=== PATIENT | male | born 1960 | race Caucasian/White ===

== ENCOUNTER 2020-06-03 07:15 | Outpatient (REF) | payer BC, SELFPAY ==
[2020-06-03 08:43] LABS: Alanine Aminotransferase 27 U/L (0-40); Albumin Level 4.4 g/dL (3.5-5.0); Alkaline Phosphatase 64 U/L (39-117); Aspartate Amino Transferase 23 U/L (5-37); Bilirubin Direct 0.3 mg/dL (0.0-0.5); Bilirubin Total 0.8 mg/dL (0.0-1.0); Cholesterol 172 mg/dL; HDL Cholesterol 45 mg/dL; LDL Cholesterol Calculated 102 mg/dl; Total Protein 7.1 g/dL (6.5-8.0); Triglycerides 127 mg/dL
[2020-06-03 09:27] LABS: Estimated Average Glucose 137 mg/dL; Hemoglobin A1c % 6.4 %
== END 2020-06-03 07:16 | disposition home or self-care (01) ==
LOC: HO.LAB 07:15
PROVIDERS: PCP Internal Medicine; Visit Provider Internal Medicine
DX: E78.5 Hyperlipidemia, unspecified (principal); E11.9 Type 2 diabetes mellitus without complications
CPT/HCPCS: 80061; 80076; 83036

== ENCOUNTER 2020-08-23 07:53 | Outpatient (REF) | payer BC, SELFPAY | END 2020-08-23 07:54 | disposition home or self-care (01) | LOC: HO.LAB 07:53 | PROVIDERS: Visit Provider Internal Medicine | DX: Z20.828 Contact with and (suspected) exposure to other viral communicable diseases (principal) | CPT/HCPCS: C9803; U0003 ==

== ENCOUNTER 2020-10-01 06:17 | Outpatient (REF) | payer BC, SELFPAY ==
[2020-10-01 07:38] LABS: Cholesterol 169 mg/dL; HDL Cholesterol 46 mg/dL; LDL Cholesterol Calculated 98 mg/dl; Triglycerides 125 mg/dL
[2020-10-01 08:16] LABS: Estimated Average Glucose 151 mg/dL; Hemoglobin A1c % 6.9 %
== END 2020-10-01 06:18 | disposition home or self-care (01) ==
LOC: HO.LAB 06:17
PROVIDERS: Visit Provider Internal Medicine
DX: E11.9 Type 2 diabetes mellitus without complications (principal); E78.5 Hyperlipidemia, unspecified
CPT/HCPCS: 36415; 80061; 83036

== ENCOUNTER → 2020-11-04 09:11 | Outpatient (BNVA) | payer BC, SELFPAY | PROVIDERS: Visit Provider Orthopaedic Surgery | DX: M17.11 Unilateral primary osteoarthritis, right knee (principal) | CPT/HCPCS: 20610; J1100 ==

== ENCOUNTER 2020-12-31 11:42 | Outpatient (REF) | payer BC, SELFPAY ==
[2020-12-31 13:48] LABS: Estimated Average Glucose 140 mg/dL; Hemoglobin A1c % 6.5 %
== END 2020-12-31 11:43 | disposition home or self-care (01) ==
LOC: HO.LAB 11:42
PROVIDERS: PCP Internal Medicine; Visit Provider Internal Medicine
DX: E11.9 Type 2 diabetes mellitus without complications (principal)
CPT/HCPCS: 36415; 83036

== ENCOUNTER 2021-01-26 11:22 | Outpatient (REF) | payer BC, SELFPAY ==
--- NOTE | ~2021-01-26 | US_ITS ---
EXAMINATION: US PELVIS LIMITED (BLADDER) CLINICAL INFORMATION: Incontinence. COMPARISON: None TECHNIQUE: Real-time imaging of the bladder. FINDINGS: BLADDER: Well distended and normal. Bilateral ureteral jets are demonstrated. Prevoid bladder volume is 436 mL. Postvoid bladder volume is elevated at 46.8 mL. Prostate: The prostate is enlarged measuring 45 grams. US/US bladder IMPRESSION: BPH with 45 gram prostate and moderate post void residual of 47 mL.
== END 2021-01-26 11:23 | disposition home or self-care (01) ==
LOC: HO.HMGCX 11:22
PROVIDERS: PCP Internal Medicine; Visit Provider Internal Medicine
DX: R39.15 Urgency of urination (principal); R35.0 Frequency of micturition
CPT/HCPCS: 76857

== ENCOUNTER 2021-02-17 06:34 | Outpatient (REF) | payer BC, SELFPAY ==
[2021-02-17 07:04] LABS: MANUAL DIFF FLAG NO
[2021-02-17 07:11] LABS: Basophils Percent Auto 0.4 % (0-2); Eosinophils Absolute Auto 0.2 X10*3/uL (0.0-0.4); Eosinophils Percent Auto 3.4 % (0-4); Hematocrit 42.3 % (42-52); Hemoglobin 14.7 g/dl (14.0-18.0); Imm Gran Abs Auto 0.01 X10*3/uL (0.00-0.03); Imm Gran Pct Auto 0.2 % (0.0-0.4); Lymphocytes Absolute Auto 1.3 X10*3/uL (1.2-4.9); Lymphocytes Percent Auto 27.8 % (20-40); Mean Corpuscular HGB Conc 34.8 g/dl (31.0-36.0); Mean Corpuscular Hemoglobin 29.3 pg (27.0-33.0); Mean Corpuscular Volume 84.4 fL (80-98); Mean Platelet Volume 10.3 fL (9.4-12.4); Monocytes Absolute Auto 0.4 X10*3/uL (0.1-1.2); Monocytes Percent Auto 8.8 % (2-11); Neutrophils Absolute Auto 2.8 X10*3/uL (2.0-8.3); Neutrophils Percent Auto 59.4 % (45-73); Platelet Count 152 X10*3/uL (160-400); Red Blood Count 5.01 X10*6/uL (4.60-5.80); Red Cell Distribution Width 12.1 % (11.0-16.0); White Blood Count 4.7 X10*3/uL (4.8-10.8)
[2021-02-17 07:40] LABS: Alanine Aminotransferase 35 U/L (0-40); Albumin Level 4.6 g/dL (3.5-5.0); Alkaline Phosphatase 73 U/L (39-117); Anion Gap 11 (12-20); Aspartate Amino Transferase 29 U/L (5-37); Bilirubin Direct 0.3 mg/dL (0.0-0.5); Bilirubin Total 0.7 mg/dL (0.0-1.0); Blood Urea Nitrogen 21 mg/dL (9-16); Carbon Dioxide 30 mmol/L (22-29); Chloride 104 mmol/L (96-108); Cholesterol 167 mg/dL; Estimated Glomerular Filt Rate > 60; Glucose Fasting 142 mg/dL (60-99); HDL Cholesterol 45 mg/dL; LDL Cholesterol Calculated 90 mg/dl; Potassium 3.8 mmol/L (3.3-5.1); Sodium 141 mmol/L (135-145); Total Protein 7.3 g/dL (6.5-8.0); Triglycerides 161 mg/dL
[2021-02-17 08:01] LABS: Prostate Specific Antigen 5.29 ng/mL (<0.05-4.0)
== END 2021-02-17 06:35 | disposition home or self-care (01) ==
LOC: HO.LAB 06:34
PROVIDERS: PCP Internal Medicine; Visit Provider Internal Medicine
DX: Z12.5 Encounter for screening for malignant neoplasm of prostate (principal); R53.83 Other fatigue; E11.9 Type 2 diabetes mellitus without complications; E78.00 Pure hypercholesterolemia, unspecified
CPT/HCPCS: 36415; 80051; 80061; 80076; 82565; 82947; 84153; 84520; 85025

== ENCOUNTER 2021-03-02 11:06 | Outpatient (REF) | payer BC, SELFPAY ==
--- NOTE | ~2021-03-02 | XR_ITS ---
EXAMINATION: XR FOOT, RIGHT CLINICAL INFORMATION: Trauma COMPARISON: None TECHNIQUE: AP, lateral, and oblique views of the right foot. FINDINGS: Bone alignment is normal. No fracture or dislocation is seen. There is question of cyst erosion of the lateral first metatarsal head. Joint spaces are otherwise normal. There are calcaneal spurs are soft tissues are otherwise normal. XR/XR foot RT min 3V IMPRESSION: No fracture or dislocation seen. Calcaneal spurs. Question small cyst or erosion of the lateral first metatarsal head.
== END 2021-03-02 11:07 | disposition home or self-care (01) ==
LOC: HO.HMGCX 11:06
PROVIDERS: PCP Internal Medicine; Visit Provider Nurse Practitioner Family
DX: S99.921A Unspecified injury of right foot, initial encounter (principal)
CPT/HCPCS: 73630

== ENCOUNTER 2021-06-15 06:08 | Outpatient (REF) | payer BC, SELFPAY ==
[2021-06-15 07:53] LABS: Alanine Aminotransferase 29 U/L (0-40); Albumin Level 4.5 g/dL (3.5-5.0); Alkaline Phosphatase 67 U/L (39-117); Aspartate Amino Transferase 24 U/L (5-37); Bilirubin Direct 0.3 mg/dL (0.0-0.5); Cholesterol 171 mg/dL; HDL Cholesterol 44 mg/dL; LDL Cholesterol Calculated 93 mg/dl; Total Protein 7.4 g/dL (6.5-8.0); Triglycerides 172 mg/dL
== END 2021-06-15 06:09 | disposition home or self-care (01) ==
LOC: HO.LAB 06:08
PROVIDERS: PCP Internal Medicine; Visit Provider Internal Medicine
DX: E78.5 Hyperlipidemia, unspecified (principal); E78.00 Pure hypercholesterolemia, unspecified
CPT/HCPCS: 36415; 80061; 80076

== ENCOUNTER 2021-09-16 06:57 | Outpatient (REF) | payer BC, SELFPAY ==
[2021-09-16 08:25] LABS: Alanine Aminotransferase 28 U/L (0-40); Albumin Level 4.4 g/dL (3.5-5.0); Alkaline Phosphatase 67 U/L (39-117); Aspartate Amino Transferase 24 U/L (5-37); Bilirubin Direct 0.3 mg/dL (0.0-0.5); Bilirubin Total 0.7 mg/dL (0.0-1.0); Cholesterol 155 mg/dL; Estimated Average Glucose 154 mg/dL; HDL Cholesterol 48 mg/dL; LDL Cholesterol Calculated 76 mg/dl; Total Protein 7.2 g/dL (6.5-8.0); Triglycerides 155 mg/dL
== END 2021-09-16 06:58 | disposition home or self-care (01) ==
LOC: HO.LAB 06:57
PROVIDERS: PCP Internal Medicine; Visit Provider Internal Medicine
DX: E11.9 Type 2 diabetes mellitus without complications (principal); E78.5 Hyperlipidemia, unspecified
CPT/HCPCS: 36415; 80061; 80076; 83036

== ENCOUNTER 2021-10-24 06:46 | Outpatient (REF) | payer BC, SELFPAY ==
[2021-10-24 08:31] LABS: Prostate Specific Antigen 4.74 ng/mL (<0.05-4.0)
== END 2021-10-24 06:47 | disposition home or self-care (01) ==
LOC: HO.LAB 06:46
PROVIDERS: PCP Internal Medicine; Visit Provider Urology
DX: Z12.5 Encounter for screening for malignant neoplasm of prostate (principal); R97.20 Elevated prostate specific antigen [PSA]
CPT/HCPCS: 36415; 84153

== ENCOUNTER 2021-12-23 07:06 | Outpatient (REF) | payer BC, SELFPAY ==
[2021-12-23 07:45] LABS: Alanine Aminotransferase 36 U/L (0-40); Albumin Level 4.5 g/dL (3.5-5.0); Alkaline Phosphatase 68 U/L (39-117); Aspartate Amino Transferase 31 U/L (5-37); Bilirubin Direct 0.4 mg/dL (0.0-0.5); Cholesterol 157 mg/dL; HDL Cholesterol 42 mg/dL; LDL Cholesterol Calculated 85 mg/dl; Total Protein 7.4 g/dL (6.5-8.0); Triglycerides 152 mg/dL
== END 2021-12-23 07:07 | disposition home or self-care (01) ==
LOC: HO.LAB 07:06
PROVIDERS: PCP Internal Medicine; Visit Provider Internal Medicine
DX: E78.00 Pure hypercholesterolemia, unspecified (principal)
CPT/HCPCS: 36415; 80061; 80076

== ENCOUNTER 2022-02-21 06:49 | Outpatient (REF) | payer BC, SELFPAY ==
[2022-02-21 07:09] LABS: MANUAL DIFF FLAG NO
[2022-02-21 07:46] LABS: Basophils Percent Auto 0.2 % (0-2); Eosinophils Absolute Auto 0.2 X10*3/uL (0.0-0.4); Eosinophils Percent Auto 3.4 % (0-4); Hematocrit 42.2 % (42.0-52.0); Hemoglobin 14.4 g/dl (14.0-18.0); Imm Gran Abs Auto 0.02 X10*3/uL (0.00-0.03); Imm Gran Pct Auto 0.4 % (0.0-0.4); Lymphocytes Absolute Auto 1.7 X10*3/uL (1.2-4.9); Lymphocytes Percent Auto 30.9 % (20-40); Mean Corpuscular HGB Conc 34.1 g/dl (31.0-36.0); Mean Corpuscular Hemoglobin 28.8 pg (27.0-33.0); Mean Corpuscular Volume 84.4 fL (80.0-98.0); Mean Platelet Volume 10.7 fL (9.4-12.4); Monocytes Absolute Auto 0.4 X10*3/uL (0.1-1.2); Neutrophils Absolute Auto 3.2 x10*3/uL (2.0-8.3); Neutrophils Percent Auto 57.1 % (45-73); Platelet Count 157 X10*3/uL (160-400); Red Cell Distribution Width 12.7 % (11.0-16.0); White Blood Count 5.5 X10*3/uL (4.8-10.8)
[2022-02-21 08:30] LABS: Alanine Aminotransferase 23 U/L (0-40); Albumin Level 4.3 g/dL (3.5-5.0); Alkaline Phosphatase 69 U/L (39-117); Anion Gap 15 (12-20); Aspartate Amino Transferase 24 U/L (5-37); Bilirubin Direct 0.4 mg/dL (0.0-0.5); Bilirubin Total 1.2 mg/dL (0.0-1.0); Blood Urea Nitrogen 17 mg/dL (9-16); Carbon Dioxide 26 mmol/L (22-29); Chloride 103 mmol/L (96-108); Cholesterol 162 mg/dL; Estimated Glomerular Filt Rate > 60; Glucose Fasting 154 mg/dL (60-99); HDL Cholesterol 45 mg/dL; LDL Cholesterol Calculated 79 mg/dl; Potassium 3.7 mmol/L (3.3-5.1); Sodium 140 mmol/L (135-145); Total Protein 7.2 g/dL (6.5-8.0); Triglycerides 191 mg/dL
[2022-02-21 08:37] LABS: Estimated Average Glucose 148 mg/dL; Hemoglobin A1c % 6.8 %
== END 2022-02-21 06:50 | disposition home or self-care (01) ==
LOC: HO.LAB 06:49
PROVIDERS: PCP Internal Medicine; Visit Provider Internal Medicine
DX: E78.5 Hyperlipidemia, unspecified (principal); R53.83 Other fatigue; E11.9 Type 2 diabetes mellitus without complications
CPT/HCPCS: 36415; 80051; 80061; 80076; 82565; 82947; 83036; 84520; 85025

== ENCOUNTER 2022-05-08 07:49 | Outpatient (REF) | payer BC, SELFPAY ==
[2022-05-08 09:08] LABS: Prostate Specific Antigen 5.03 ng/mL (<0.05-4.0)
== END 2022-05-08 07:50 | disposition home or self-care (01) ==
LOC: HO.LAB 07:49
PROVIDERS: PCP Internal Medicine; Visit Provider Urology
DX: Z12.5 Encounter for screening for malignant neoplasm of prostate (principal); R97.20 Elevated prostate specific antigen [PSA]
CPT/HCPCS: 36415; 84153

== ENCOUNTER 2022-05-23 06:50 | Outpatient (REF) | payer BC, SELFPAY ==
[2022-05-23 07:21] LABS: Estimated Average Glucose 131 mg/dL; Hemoglobin A1c % 6.2 %
[2022-05-23 07:47] LABS: Alanine Aminotransferase 21 U/L (0-40); Albumin Level 4.5 g/dL (3.5-5.0); Alkaline Phosphatase 66 U/L (39-117); Aspartate Amino Transferase 20 U/L (5-37); Bilirubin Direct 0.4 mg/dL (0.0-0.5); Cholesterol 168 mg/dL; HDL Cholesterol 48 mg/dL; LDL Cholesterol Calculated 98 mg/dl; Total Protein 7.2 g/dL (6.5-8.0); Triglycerides 114 mg/dL
== END 2022-05-23 06:51 | disposition home or self-care (01) ==
LOC: HO.LAB 06:50
PROVIDERS: PCP Internal Medicine; Visit Provider Internal Medicine
DX: E11.9 Type 2 diabetes mellitus without complications (principal); E78.00 Pure hypercholesterolemia, unspecified
CPT/HCPCS: 36415; 80061; 80076; 83036

== ENCOUNTER 2022-09-07 06:30 | Outpatient (REF) | payer BC, SELFPAY ==
[2022-09-07 08:08] LABS: Estimated Average Glucose 148 mg/dL; Hemoglobin A1c % 6.8 %
[2022-09-07 08:20] LABS: Cholesterol 167 mg/dL; HDL Cholesterol 47 mg/dL; LDL Cholesterol Calculated 94 mg/dl; Triglycerides 131 mg/dL
== END 2022-09-07 06:31 | disposition home or self-care (01) ==
LOC: HO.LAB 06:30
PROVIDERS: PCP Internal Medicine; Visit Provider Internal Medicine
DX: E11.9 Type 2 diabetes mellitus without complications (principal); E78.5 Hyperlipidemia, unspecified
CPT/HCPCS: 36415; 80061; 83036

== ENCOUNTER 2022-11-14 16:46 | Outpatient (REF) | payer BC, SELFPAY ==
[2022-11-16 11:54] LABS: Free Prostate Spec Ag 0.8 ng/mL; Percent Free Prostate Spec Ag 11 % (calc) (>25)
== END 2022-11-14 16:47 | disposition home or self-care (01) ==
LOC: HO.LAB 16:46
PROVIDERS: PCP Internal Medicine; Visit Provider Nurse Practitioner Family
DX: R97.20 Elevated prostate specific antigen [PSA] (principal)
CPT/HCPCS: 36415; 84154

== ENCOUNTER 2023-03-20 06:48 | Outpatient (REF) | payer BC, SELFPAY ==
[2023-03-20 06:55] LABS: MANUAL DIFF FLAG NO
[2023-03-20 07:25] LABS: Basophils Percent Auto 0.5 % (0-2); Eosinophils Absolute Auto 0.2 X10*3/uL (0.0-0.4); Hematocrit 43.6 % (42.0-52.0); Imm Gran Abs Auto 0.02 X10*3/uL (0.00-0.03); Imm Gran Pct Auto 0.3 % (0.0-0.4); Lymphocytes Absolute Auto 1.8 X10*3/uL (1.2-4.9); Lymphocytes Percent Auto 30.7 % (20-40); Mean Corpuscular HGB Conc 34.4 g/dl (31.0-36.0); Mean Corpuscular Hemoglobin 28.8 pg (27.0-33.0); Mean Corpuscular Volume 83.8 fL (80.0-98.0); Mean Platelet Volume 10.6 fL (9.4-12.4); Monocytes Absolute Auto 0.4 X10*3/uL (0.1-1.2); Monocytes Percent Auto 7.3 % (2-11); Neutrophils Absolute Auto 3.3 x10*3/uL (2.0-8.3); Neutrophils Percent Auto 58.2 % (45-73); Platelet Count 172 X10*3/uL (160-400); Red Cell Distribution Width 12.4 % (11.0-16.0); White Blood Count 5.7 X10*3/uL (4.8-10.8)
[2023-03-20 07:56] LABS: Alanine Aminotransferase 23 U/L (0-40); Albumin Level 4.4 g/dL (3.5-5.0); Alkaline Phosphatase 64 U/L (39-117); Anion Gap 12 (12-20); Aspartate Amino Transferase 24 U/L (5-37); Bilirubin Total 0.9 mg/dL (0.0-1.0); Blood Urea Nitrogen 15 mg/dL (9-16); Calcium 9.4 mg/dL (8.4-10.2); Carbon Dioxide 29 mmol/L (22-29); Chloride 102 mmol/L (96-108); Cholesterol 162 mg/dL; Estimated Glomerular Filt Rate > 60; Glucose Fasting 171 mg/dL (60-99); HDL Cholesterol 48 mg/dL; LDL Cholesterol Calculated 86 mg/dl; Potassium 3.6 mmol/L (3.3-5.1); Sodium 139 mmol/L (135-145); Total Protein 7.6 g/dL (6.5-8.0); Triglycerides 144 mg/dL
[2023-03-20 07:57] LABS: Estimated Average Glucose 143 mg/dL; Hemoglobin A1c % 6.6 %
== END 2023-03-20 06:49 | disposition home or self-care (01) ==
LOC: HO.LAB 06:48
PROVIDERS: PCP Internal Medicine; Visit Provider Internal Medicine
DX: Z00.00 Encounter for general adult medical examination without abnormal findings (principal); E78.5 Hyperlipidemia, unspecified; E11.9 Type 2 diabetes mellitus without complications
CPT/HCPCS: 36415; 80053; 80061; 83036; 85025

== ENCOUNTER 2023-07-23 17:06 | Outpatient (REF) | payer BC, SELFPAY ==
[2023-07-23 18:35] LABS: Prostate Specific Antigen 7.89 ng/mL (<0.05-4.0)
== END 2023-07-23 17:07 | disposition home or self-care (01) ==
LOC: HO.LAB 17:06
PROVIDERS: PCP Internal Medicine; Visit Provider Urology
DX: Z12.5 Encounter for screening for malignant neoplasm of prostate (principal); C61 Malignant neoplasm of prostate
CPT/HCPCS: 36415; 84153

== ENCOUNTER 2023-09-21 08:03 | Outpatient (REF) | payer BC, SELFPAY ==
--- NOTE | ~2023-09-21 | XR_ITS ---
EXAMINATION: XR STANDING BILATERAL KNEES XR LATERAL AND SUNRISE VIEWS RIGHT KNEE CLINICAL INFORMATION: Pain in nonspecified knee. COMPARISON: Right knee radiographs 09/04/2019, 07/10/2019, 10/05/2016. TECHNIQUE: An AP standing view both knees was obtained. Lateral and sunrise views of the right knee. FINDINGS: Single AP view of the left knee demonstrates progression of zhiobzzc-cy-kfywnf medial joint space narrowing with medial and lateral marginal osteophytes. Right Knee: Progression of moderate to marked medial joint space narrowing with small medial marginal osteophytes. Moderate joint effusion. Advanced degenerative changes in the patellofemoral joint with large posterior patellar osteophytes and joint space narrowing. Anterior superior patellar spurring with soft tissue calcifications. XR/XR knee standing BI IMPRESSION: 1. Progression of zdclqkzl-lg-hkeiep degenerative changes in the left knee. 2. Progression of moderate to marked degenerative changes in the right knee.
--- NOTE | ~2023-09-21 | XR_ITS ---
EXAMINATION: XR STANDING BILATERAL KNEES XR LATERAL AND SUNRISE VIEWS RIGHT KNEE CLINICAL INFORMATION: Pain in nonspecified knee. COMPARISON: Right knee radiographs 09/04/2019, 07/10/2019, 10/05/2016. TECHNIQUE: An AP standing view both knees was obtained. Lateral and sunrise views of the right knee. FINDINGS: Single AP view of the left knee demonstrates progression of fltiahff-gc-omtucx medial joint space narrowing with medial and lateral marginal osteophytes. Right Knee: Progression of moderate to marked medial joint space narrowing with small medial marginal osteophytes. Moderate joint effusion. Advanced degenerative changes in the patellofemoral joint with large posterior patellar osteophytes and joint space narrowing. Anterior superior patellar spurring with soft tissue calcifications. XR/XR knee RT 2V IMPRESSION: 1. Progression of mqpvsiwp-va-fuuvjz degenerative changes in the left knee. 2. Progression of moderate to marked degenerative changes in the right knee.
== END 2023-09-21 08:04 | disposition home or self-care (01) ==
LOC: HO.HOSX 08:03
PROVIDERS: Visit Provider Orthopaedic Surgery
DX: M25.561 Pain in right knee (principal)
CPT/HCPCS: 20610; 73560; 73565; J0665; J1100

== ENCOUNTER 2023-09-21 09:35 | Outpatient (AMB) | payer BC, SELFPAY ==
--- NOTE | 2023-09-21 09:46 | MHC.OFFVIS ---
Intake Vital Signs 09/21/23 09:49 Height 6 ft Weight 225 lb BMI 30.5 Intake Visit Reasons: OV-Right knee pain DOS in 2017 Intake Note: Ryan is a 63 year old male who presents today for a follow up of his right knee. Hx of right knee 10/15/2016. Last Injected 11/04/2020. Patient reports that around eryn time he has some increased aching, he played golf and pushed it. He does not recall and direct injury, but he was in significant pain after playing golf . He feels pain throughout the knee but most intense pain is felt on the lateral aspect of the knee . He is taking ibuprofen/Tylenol for his pain which only provides mild. He is wearing a knee brace, finds this helpful while on uneven ground. Allergies No Known Allergies [No Known Allergies*] Allergy (Unverified 05/13/20 17:05) HPI OV-Right knee pain DOS in 2017 HPI Details Ryan is a 63 year old man who presents with complaints of right knee pain. He says his pain began ~1 month ago, while he was playing Golf. He complains of pain with daily activity, worse with walking on uneven ground. He denies any falls or injury, but feels he overused his knee while Golfing and felt significant pain afterwards. He has found limited relief from Tylenol or Ibuprofen, and more significant relief from wearing a knee brace, particularly when walking over uneven surfaces. He has a hx of right knee done on 10/15/16, and his knee was last injected on 11/04/20. 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 [employer] All systems reviewed & are unremarkable except as noted in HPI and below Physical Exam Const General: no acute distress, alert and awake Orientation/consciousness: patient oriented x3 HEENT Head: Yes normocephalic and Yes atraumatic Eyes EOM: EOMs intact bilaterally Resp Effort & Inspection: normal respiratory effort and able to speak in complete sentences Cardio Jugular venous distension: no JVD Skin General skin exam: turgor normal Rashes: no rashes Neuro General: patient oriented x3 Extrem Other: 10-90 moderate effusion posteriorly quad intact Psych Appearance: grossly normal Affect: normal affect Attitude: cooperative Office Procedures Joint Injection/Drain Joint Injection/Drain Details: Injected 1 mL of Decadron and 3 mL 1% lidocaine and 3 mL of 0.25% Marcaine. Site was prepped using aseptic technique. Patient tolerated the procedure well. Primary Site: right knee Approach Used: anterolateral Coding - Large joint Procedure code (CPT) selection complete Results Reviewed Results Reviewed: I personally reviewed relevant radiographs. Bilateral varus pattern tricompartmental knee OA, moderate to severe Assessment & Plan Assessment & Plan (1) Arthritis of right knee: Code(s): M17.11 - Unilateral primary osteoarthritis, right knee Plan: Right knee OA. Injected right knee. Was doing until golfing in [facility]. F/u 2 weeks via phone. If no improvement will consider gel Plan Prepared for Tramaine Monaco MD by Sanju Guthrie, medical insurance claims processor, on 09/21/23 at 9:49 AM, EST. Orders: Orders XR knee RT 2V Today M25.569 - Pain in unspecified knee XR knee standing BI Today M25.569 - Pain in unspecified knee Coding Level of Care Code Est Pt Level 3 (80452) Diagnoses Arthritis of right knee M17.11 CPT Codes Coding - Large joint: 58327 - Large joint ([id number])
[2023-09-21 09:49] VITALS: BMI 30.5
== END 2023-09-21 10:46 | disposition home or self-care (01) ==
PROVIDERS: PCP Internal Medicine; Visit Provider Orthopaedic Surgery
DX: M17.11 Unilateral primary osteoarthritis, right knee (principal)
CPT/HCPCS: 20610; 99213

== ENCOUNTER 2023-10-17 16:40 | Outpatient (REF) | payer BC, SELFPAY | END 2023-10-17 16:41 | disposition home or self-care (01) | LOC: HO.MRI 16:40 | PROVIDERS: PCP Internal Medicine; Visit Provider Internal Medicine | DX: Z13.89 Encounter for screening for other disorder (principal) ==

== ENCOUNTER 2023-10-29 13:57 | Outpatient (AMB) | payer BC, SELFPAY ==
--- NOTE | 2023-10-29 14:03 | A.OFFVIS_ITS ---
Intake Intake Visit Reasons: TELE - Right Knee OA - Discuss Tx Options Intake Note: Ryan is a 63 year old male who presents today VIA telephone to discuss alternative treatment options as he was denied for a Durolane Injection Allergies No Known Allergies [No Known Allergies*] Allergy (Unverified 05/13/20 17:05) HPI TELE - Right Knee OA - Discuss Tx Options HPI Details Adrian has known right knee OA. Steroid injections were not helpful and we attempted WELCH injections but they are not part of [employer] plan. He is unable to get through his day without pain. 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 Medial compartment OA, right knee, Assessment & Plan Assessment & Plan (1) Arthritis of right knee: Code(s): M17.11 - Unilateral primary osteoarthritis, right knee Plan: Right knee OA. WELCH not an option and out of pocket not recommended. I do recommend PRP. He would like to proceed forward with this. We will coordinate. Telehealth Telehealth Location of provider rendering services: practice address Location of patient: address on file Patient Identification confirmed using: Name, : Yes Telehealth method: voice only Patient verbally consented to treatment: Yes Patient verbally consented to billing insurance company: Yes Patient informed of any privacy concerns related to visit: Yes Minutes spent on Phone/Video with Pt.: 10 Coding Level of Care Code Tele Est Pt Level 3 (46144) Diagnoses Arthritis of right knee M17.11
== END 2023-10-29 14:17 | disposition home or self-care (01) ==
PROVIDERS: PCP Internal Medicine; Visit Provider Orthopaedic Surgery
DX: M17.11 Unilateral primary osteoarthritis, right knee (principal)
CPT/HCPCS: 99441

== ENCOUNTER → 2023-10-29 13:57 | Outpatient (BNVA) | payer BC, SELFPAY | PROVIDERS: PCP Internal Medicine; Visit Provider Orthopaedic Surgery ==

== ENCOUNTER 2023-11-23 12:49 | Outpatient (AMB) | payer SELFPAY ==
--- NOTE | 2023-11-23 12:51 | A.OFFVIS_ITS ---
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 Exam Extrem Other: skin c/d/i right knee Office Procedures Platelet Rich Plasma Injection PRP Joint Injection Primary Site: right knee Prep: site was prepped using aseptic technique Approach Used: anterolateral XCELL Platelet Plasma - 0232T 60 mL All charges added?: Procedure code (CPT) selection complete Assessment & Plan Assessment & Plan (1) Arthritis of right knee: Code(s): M17.11 - Unilateral primary osteoarthritis, right knee Plan: Right knee PRP injection Coding Level of Care Code Procedure Only Diagnoses Arthritis of right knee M17.11 CPT Codes XCELL Kit 60mL ([id number]) XCELL Kit 120mL ([id number])
== END 2023-11-23 15:48 | disposition home or self-care (01) ==
LOC: HO.HOSPRC 12:49
PROVIDERS: PCP Internal Medicine; Visit Provider Orthopaedic Surgery
DX: M17.11 Unilateral primary osteoarthritis, right knee (principal)
CPT/HCPCS: 0232T

== ENCOUNTER → 2023-11-23 12:49 | Outpatient (BNVA) | payer BC, SELFPAY | PROVIDERS: PCP Internal Medicine; Visit Provider Orthopaedic Surgery ==

== ENCOUNTER 2024-01-04 06:23 | Outpatient (REF) | payer BC, SELFPAY ==
[2024-01-04 07:55] LABS: Estimated Average Glucose 157 mg/dL; Hemoglobin A1c % 7.1 % (<6.0)
[2024-01-04 08:28] LABS: Prostate Specific Antigen 7.01 ng/mL (<0.05-4.0)
== END 2024-01-04 06:24 | disposition home or self-care (01) ==
LOC: HO.LAB 06:23
PROVIDERS: Nurse Practitioner Acute Care; PCP Internal Medicine; Visit Provider Internal Medicine
DX: Z12.5 Encounter for screening for malignant neoplasm of prostate (principal); E11.9 Type 2 diabetes mellitus without complications; R97.20 Elevated prostate specific antigen [PSA]
CPT/HCPCS: 36415; 83036; 84153

== ENCOUNTER → 2024-02-21 12:58 | Outpatient (BNVA) | payer BC, SELFPAY | PROVIDERS: PCP Internal Medicine | DX: Z01.818 Encounter for other preprocedural examination (principal) ==

== ENCOUNTER 2024-03-12 06:26 | Outpatient (REF) | payer BC, SELFPAY ==
[2024-03-12 06:39] LABS: MANUAL DIFF FLAG NO
[2024-03-12 08:56] LABS: Basophils Percent Auto 0.6 % (0-2); Eosinophils Absolute Auto 0.1 X10*3/uL (0.0-0.4); Eosinophils Percent Auto 2.5 % (0-4); Hematocrit 42.8 % (42.0-52.0); Hemoglobin 14.7 g/dl (14.0-18.0); Imm Gran Abs Auto 0.05 X10*3/uL (0.00-0.03); Lymphocytes Absolute Auto 1.6 X10*3/uL (1.2-4.9); Lymphocytes Percent Auto 29.5 % (20-40); Mean Corpuscular HGB Conc 34.3 g/dl (31.0-36.0); Mean Corpuscular Hemoglobin 29.1 pg (27.0-33.0); Mean Corpuscular Volume 84.6 fL (80.0-98.0); Mean Platelet Volume 10.7 fL (9.4-12.4); Monocytes Absolute Auto 0.4 X10*3/uL (0.1-1.2); Neutrophils Absolute Auto 3.1 x10*3/uL (2.0-8.3); Neutrophils Percent Auto 59.4 % (45-73); Platelet Count 170 X10*3/uL (160-400); Red Blood Count 5.06 X10*6/uL (4.60-5.80); Red Cell Distribution Width 12.6 % (11.0-16.0); White Blood Count 5.3 X10*3/uL (4.8-10.8)
[2024-03-12 09:20] LABS: Anion Gap 16 (12-20); Blood Urea Nitrogen 16 mg/dL (9-16); Calcium 9.5 mg/dL (8.4-10.2); Carbon Dioxide 25 mmol/L (22-29); Chloride 105 mmol/L (96-108); Estimated Glomerular Filt Rate > 60; Glucose Random 144 mg/dL (60-115); Potassium 3.7 mmol/L (3.3-5.1); Sodium 142 mmol/L (135-145)
== END 2024-03-12 06:27 | disposition home or self-care (01) ==
LOC: HO.LAB 06:26
PROVIDERS: PCP Internal Medicine; Visit Provider Internal Medicine
DX: E11.9 Type 2 diabetes mellitus without complications (principal); R53.83 Other fatigue
CPT/HCPCS: 36415; 80048; 85025

== ENCOUNTER 2024-03-20 14:35 | Outpatient (AMB) | payer BC, SELFPAY ==
[2024-03-20 14:38] VITALS: BMI 30.5
--- NOTE | 2024-03-20 14:38 | A.OFFVIS_ITS ---
Vital Signs 03/20/24 14:38 Height 6 ft Weight 225 lb BMI 30.5 Intake Visit Reasons: R TKA w/NE 03/25/24 Intake Note: Ryan a 63 year old male who presents today for a preoperative visit for a right TKA on 03/25/24 NE. Pain management agreement reviewed and signed. Allergies No Known Allergies [No Known Allergies*] Allergy (Unverified 03/20/24 14:42) Medication List - Last Reconciled 03/20/24 by Jud Richey PA-C losartan 50 mg PO DAILY sildenafil 100 mg PO DAILY PRN triamterene-hydrochlorothiazid 37.5-25 mg 1 cap PO DAILY walker Folding Front wheeled walker HPI HPI R TKA w/NE 03/25/24: Details: Ryan is a 63-year-old male who presents today for a preoperative evaluation of right TKA with NE on 03/25/2024. Patient presents in the office today for a per-operative visit. He is scheduled for a right total knee arthroplasty with Dr. Monaco. He continues to have ongoing pain and difficulty with in the right knee, which is affecting her quality of life; therefore; he has elected to move forward with surgery. He denies any history of blood clots. He denies smoking cigarettes. He has a h/o prostate cancer He denies any allergies to medication. COUNT INCLUDES [facility] Medical History (Updated 03/14/24 @ 09:54 by Kate Foreman RN) Prostate cancer Sleep apnea Elevated cholesterol HTN (hypertension) Surgical History History of esophagogastroduodenoscopy (EGD) S/P right knee arthroscopy Social History Are you a primary career education teacher to a significant other at home: No Do you presently have visiting nurse or other home services: No Patient Tobacco Use Status: Never used Tobacco Use of substances other than those prescribed or required for medical reasons: No Have you been hit, kicked, punched, or otherwise hurt by someone within the past year? 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 Resp Other: No audible wheezing Effort & Inspection: normal respiratory effort Cardio Other: Radial pulse palpable with no rythmic abnormalities Back/Spine/Pelvis Cervical Spine: normal cervical lordosis Skin General skin exam: no rashes or lesions noted Neuro General: no focal motor deficits Extrem Other: Right knee with mild effusion. There is retropatellar and medial compartment tenderness to palpation with a negative Collin's. Psych Appearance: grossly normal and well kempt Mental Status: mental status grossly normal Speech and movement: Normal speech and movement present Affect: normal affect Attitude: cooperative Assessment & Plan Assessment & Plan (1) Arthritis of right knee: Code(s): M17.11 - Unilateral primary osteoarthritis, right knee Category: Medical Plan I discussed in detail the procedure and what to expect pre and post operatively. We discussed the risks, benefits and alternatives to the surgery as well as the rehabilitation course. The risks; which include, but are not limited to infection, bleeding, nerve injury, ongoing pain, swelling, and stiffness, perioperative risk of injury to bones and soft tissues, and blood clots. I?ve answered all questions and with their understanding they have consented to move forward with Right total knee arthroplasty with Dr. Monaco He does have prostate cancer and will be treated with Eliquis post op for dvt ppx --he is going to [place] at the end of the month to meet with a specialist in regards to having surgery His plan on DC from surgery is to rehab in the [facility]-he was given a PT order to take with him once he has comepleted home VNA --I recommended he take frequent breaks on his way to the [facility] upon discharge to help prevent stiffness, excess swelling and reduce risk of DVT. Orders: Orders PT Evaluation and Treatment 03/20/24 M17.11 - Unilateral primary osteoarthritis, right knee, Z96.651 - Presence of right artificial knee joint Medications: New apixaban (Eliquis) To be used post op RT TKA 2.5 mg PO BID 6 weeks 84 tabs 0RF M17.11 - Unilateral primary osteoarthritis, right knee Patient Instructions: Scribed for Jud Richey PA-C, by Tyler Abarca medical apparatus model maker, on 03/20/2024 at 2:45 PM EST. I, Jud Richey PA-C, have personally reviewed and agree with the information entered by the scribe. Coding Level of Care Code Est Pt Level 3 (93150) Diagnoses Arthritis of right knee M17.11
== END 2024-03-20 15:35 | disposition home or self-care (01) ==
PROVIDERS: PCP Internal Medicine; Visit Provider Physician Assistant
DX: M17.11 Unilateral primary osteoarthritis, right knee (principal)
CPT/HCPCS: 99214

== ENCOUNTER → 2024-03-20 14:35 | Outpatient (BNVA) | payer BC, SELFPAY | PROVIDERS: PCP Internal Medicine; Visit Provider Physician Assistant ==

== ENCOUNTER 2024-03-25 10:26 | Day surgery (SDC) | payer BC, SELFPAY ==
[2024-03-14 09:55] VITALS: BMI 30.5
[2024-03-19 09:40] LABS: MRSA Nasal PCR NEGATIVE (Negative); SA Nasal PCR POSITIVE (Negative)
--- NOTE | 2024-03-24 12:09 | HO.ANESPROP2 ---
Documented by User: Lucy Carmichael NP 03/24/24 12:15 HPI - Anesthesia Eval Consult details Narrative: 63yo M for Right Knee Replacement Total Medically optimized per PCP Seen in [facility] 03/14/24 by unknown anesthesia provider [facility] Active Problems Active Problems: All Active Problems (Updated 03/14/24 @ 09:54 by Kate Foreman RN) Arthritis of right knee (Acute) Foot injury (Acute) Past Medical History Medical History Prostate cancer Sleep apnea Elevated cholesterol HTN (hypertension) Surgical History Surgical History History of esophagogastroduodenoscopy (EGD) S/P right knee arthroscopy Social History Social History Are you a primary respiratory care instructor to a significant other at home: No Do you presently have visiting nurse or other home services: No Patient Tobacco Use Status: Never used Tobacco Use of substances other than those prescribed or required for medical reasons: No Have you been hit, kicked, punched, or otherwise hurt by someone within the past year? 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 Meds Allergies Allergy/AdvReac Type Severity Reaction Status Date / Time No Known Allergies Allergy Unverified 03/20/24 14:42 [No Known Allergies*] Home Medications ?Medication ?Instructions ?Recorded ?Confirmed ?Last Taken ?Type losartan 50 mg tablet 50 mg PO DAILY 03/02/21 03/20/24 Unknown History sildenafil 100 mg tablet 100 mg PO DAILY PRN Sexual Activity 03/02/21 03/14/24 Unknown History triamterene 37.5 1 cap PO DAILY 03/02/21 03/20/24 Unknown History mg-hydrochlorothiazide 25 mg capsule Exam Height,Weight and Vital Signs: Height 6 ft Weight 102.058 kg Pertinent Lab Results Pertinent Lab Results: Laboratory Tests 03/19/24 03/19/24 06:36 06:56 Nasal Screen MRSA (PCR) NEGATIVE Nasal S. aureus Screen POSITIVE A Nasal MRSA/S.aureus Interp SEE NOTE Blood Type B Positive Antibody Screen NEGATIVE Laboratory Tests 03/12/24 06:37 WBC 5.3 Hgb 14.7 Hct 42.8 Plt Count 170 Sodium 142 Potassium 3.7 Chloride 105 Carbon Dioxide 25 BUN 16 Creatinine 0.86 Assessment and Plan Assessment Anesthesia Assessment: Chart Reviewed Documented by User: Coleen Bledsoe MD 03/25/24 11:09 PMFSH Past Medical History Medical History Prostate cancer Sleep apnea Elevated cholesterol HTN (hypertension) Family History Family history of problems with anesthesia: No Surgical History Surgical History History of esophagogastroduodenoscopy (EGD) S/P right knee arthroscopy History of Problems with Anesthesia: No Social History Social History Are you a primary respiratory care instructor to a significant other at home: No Do you presently have visiting nurse or other home services: No Patient Tobacco Use Status: Never used Tobacco Use of substances other than those prescribed or required for medical reasons: No Have you been hit, kicked, punched, or otherwise hurt by someone within the past year? 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 Meds Allergies Allergy/AdvReac Type Severity Reaction Status Date / Time No Known Allergies Allergy Unverified 03/20/24 14:42 [No Known Allergies*] Home Medications ?Medication ?Instructions ?Recorded ?Confirmed ?Last Taken ?Type losartan 50 mg tablet 50 mg PO DAILY 03/02/21 03/20/24 Unknown History sildenafil 100 mg tablet 100 mg PO DAILY PRN Sexual Activity 03/02/21 03/14/24 Unknown History triamterene 37.5 1 cap PO DAILY 03/02/21 03/20/24 Unknown History mg-hydrochlorothiazide 25 mg capsule Exam Airway Mallampati Class: II TM Dist: >3cm Neck ROM: Full Heart: rrr Lungs: cta Assessment and Plan Assessment Anesthesia Assessment: Anesthesia Plan Discussed Final Anesthetic Review Family History of Problems with Anesthesia: No History of Problems with Anesthesia: No NPO: Yes ASA Class: III Final Preanesthetic Review: No Changes in Pt Med Stat, Meds/Allgs Chart Reviewed, Consent Obtained/Reviewed and Anes Risks/Benef Reviewed Patient Risk: Intermediate Procedure Risk: Intermediate Anesthetic Plan Anesthetic Plan: MAC:, Spinal and Regional Block Disposition: Standard PACU
[2024-03-25] VITALS (12 sets, daily range): BP systolic 125–196; BP diastolic 57–93; PULSE 81–126; RESP 12–18; TEMP 36.2–36.8; O2SAT 94–98; BMI 30.9
--- NOTE | ~2024-03-25 | XR_ITS ---
EXAMINATION: XR KNEE, RIGHT CLINICAL INFORMATION: Right TKA COMPARISON: None available. TECHNIQUE: Four views of the right knee. FINDINGS: Prosthetic components of the total knee arthroplasty are appropriately aligned. No periprosthetic fracture. Gas from recent surgery is present in the joint and surrounding soft tissues. A joint effusion is present. XR/XR knee RT 2V IMPRESSION: Appropriate alignment of the right total knee arthroplasty.
--- NOTE | 2024-03-25 09:43 | P.DS_ITS ---
DS: Providers Provider Date of Service: 03/26/24 Primary care physician: Nick Bach MD DS: Summary Hospital Course Hospital Course: The patient underwent a successful right total knee arthroplasty, they were tr ansferred to PACU and then to the floor to recover. During their stay, their vitals were stable, afebrile at 97.3. Labs were unremarkable, H/H 12.41/35.4. POD 1 they were started on Eliquis for DVT ppx due to history of active prostate cancer, they also received Physical Therapy services twice a day. Prior to discharge, their dressing was clean dry and intact, and the plan was to be discharged home with VNA services. Time Attestation Discharge Coordination Time (in mins): 30 Quality: Safe Use of Opioids Does Pt have an Active Cancer Diagnosis on the Problem List?: No Quality: Stroke Does the patient have a stroke diagnosis?: No Physical Exam Vital Signs: Vital Signs: BMI result Body Mass Index 30.5 Const: General: cooperative, healthy appearing and no acute distress Resp: Effort & Inspection: normal respiratory effort and able to speak in complete sentences Cardio: Rate: regular rate Peripheral pulses: Peripheral pulses 2+ throughout GI: Palpation (GI): Soft to palpation Skin: Lesions: no lesions Rashes: no rashes Extrem: Other: right knee dressing is c/d/i. Able to dorsi/plantar flex. Calf is supple and nontender. Sensation intact. Pedal pulse intact. Discharge Plan Discharge Patient Disposition: Home, Self-Care Referrals: Jud Richey PA-C [Physician Firestopper Technician] - 04/10/24 2:45 pm Discharge Medications: New acetaminophen 325 mg Tablet 650 mg PO Q6H PRN (Reason: Pain, Mild (Pain Scale 1-3), fever or headache) 30 Days Qty: 420 0RF celecoxib 200 mg Capsule 200 mg PO BID 30 Days Qty: 60 0RF docusate sodium 100 mg Capsule 100 mg PO BID 30 Days Qty: 60 0RF oxycodone 5 mg Tablet 5 mg PO Q4H PRN (Reason: Pain, Moderate(Pain Scale 4-6)) 7 Days Qty: 42 0RF Rx Instructions: Partial Fill upon patient request. Continued (DME) walker Misc See Rx Instructions .MEDSUPPLY Qty: 1 0RF Rx Instructions: Folding Front wheeled walker losartan 50 mg tablet 50 mg PO DAILY triamterene-hydrochlorothiazid 37.5-25 mg capsule 1 cap PO DAILY Eliquis 2.5 mg tablet 2.5 mg PO BID 42 Days Qty: 84 0RF Rx Instructions: To be used post op RT TKA Discontinued acetaminophen 500 mg Tablet 500 mg PO TID PRN (Reason: Pain) Discharge Orders: Discharge Order (Routine); Ordered 03/26/24 Ordered By: Mel Azar Diet: Advance to usual diet Activity on Discharge: Use cane or walker Activity Restrictions/Additional Instructions: Physical Therapy for ROM 0-120, quad strength, gait training. Use walker for ambulation Limit stair climbing, No shower, No tub bath, No driving Continue Eliquis x 6weeks Keep Aquacel dressing clean, dry and intact. Follow up with orthopedics in 2 weeks Print Language: Kinyarwanda
--- NOTE | 2024-03-25 09:45 | P.F2F_ITS ---
Service Date Service Date: 03/25/24 Encounter Date of encounter: 03/26/24 Reasons for Services Signs and symptoms assessed: s/p RTKA Pt. is considered homebound due to recent surgery. Unable to drive, poor balance, poor gait mechanics. Reason for physical therapy: home safety and mobility, therapeutic exercises, restore joint function, gait/transfer training, assess need for DME and ADL training Homebound: Leaving the home is medically contraindicated at this time without the asist of a device and/or another person due th the listed conditions above and below. Reason homebound: unsteady gait / fall risk, leg weakness, pain with ambulation, poor balance / fall risk and unable to drive Certification: Based on the above findings, I certify that this patient is confined to the home and needs intermittent mcfp care, physical therapy and/or speech th erapy, or continues to need occupational therapy. The patient is under my care, and I have initiated the establishment of the plan of care. The patient will be followed by a physician who will periodically review the plan of care. Time Spent With Patient Time: Total time managing care of this patient today ____ minutes.
--- NOTE | 2024-03-25 10:54 | MHC.SHP ---
Pre-Procedural Eval Section A - 24 Hr Update-Section A only Date of Service: 03/25/24 The patient is an INPATIENT: No Changes since office visit: No Cold of Flu in the past 2 weeks, No New Medical Problems, No Changes in Medication and No Patient answered all questions The patient has been examined within 24 hours of the surgical procedure. The History & Physical has been completed within 30 days and I have reviewed it.: Yes Section B - Complete if H&P > 30 days Chief Complaint: Unilateral primary osteoarthritis, right knee Allergies: Allergies Allergy/AdvReac Type Severity Reaction Status Date / Time No Known Allergies Allergy Unverified 03/20/24 14:42 [No Known Allergies*] Plan I have reviewed the history and physical and performed a pertinent physical examination on my patient. No changes have occurred unless specified. Time Spent With Patient Time: Total time managing care of this patient today ____ minutes.
--- NOTE | 2024-03-25 10:55 | ECG_ITS ---
Test Reason : pre op Blood Pressure : / mmHG Vent. Rate : 110 BPM Atrial Rate : 110 BPM P-R Int : 182 ms QRS Dur : 104 ms QT Int : 338 ms P-R-T Axes : 037 -03 016 degrees QTc Int : 457 ms Sinus tachycardia with occasional Premature ventricular complexes Nonspecific ST abnormality Abnormal ECG No previous ECGs available Referred By: Coleen Bledsoe Electronically Signed By:Thiago Reich
[2024-03-25] MEDS: Lactated Ringers 1,000 ML 100 ML IVCONT ×2 (11:11→17:17)
--- NOTE | 2024-03-25 12:24 | PC.NURSE ---
report given to dane nguyen rn at this time.
--- NOTE | 2024-03-25 15:01 | P.BOP_ITS ---
Brief Operative Note Date of Service: 03/25/24 Pre-op diagnosis: right knee OA Post-op diagnosis: same Procedure: Right TKA Implants: Gunner Triathlon cemented posterior stabilized 01/29/35a/PS Surgeon: Tramaine Monaco MD Anesthesia: regional and spinal Was an Propellant Charge Loader used for this Procedure?: Yes Propellant Charge Loader: Jud Richey Estimated blood loss (mL): 25 Tourniquet time (min): 80 IV fluids (mL): 1,000 Pathology: other Condition: stable Disposition: PACU
[2024-03-25] MEDS: fentaNYL citrate/PF 100 MCG/2 ML VIAL 50 MCG IVPUSH (15:32)
[2024-03-25] MEDS: fentaNYL citrate/PF 100 MCG/2 ML VIAL 25 MCG IVPUSH (15:42)
[2024-03-25] MEDS: oxyCODONE HCl Immed Release 5 MG TABLET PO (17:27)
[2024-03-25] MEDS: ceFAZolin Sodium/Dextrose,Iso 2 GM/50 ML PIGGYBACK IV (18:42)
--- NOTE | 2024-03-25 19:07 | PHA.MEDREC ---
Pharmacy Consult ? Medication Reconciliation Pharmacy has completed the medication reconciliation. Confirmed medications with patient. He stated he is starting Eliquis 2.5mg 1 BID when he gets home from when he gets discharged.
[2024-03-25] MEDS: Docusate Sodium 100 MG CAPSULE PO (20:17)
[2024-03-25] MEDS: oxyCODONE HCl ER 10 MG TAB.ER.12H PO (20:17)
[2024-03-25] MEDS: Celecoxib 200 MG CAPSULE PO (20:18)
[2024-03-26 02:00] VITALS: BP 134/67; PULSE 91; RESP 16; TEMP 36.3; O2SAT 95
[2024-03-26] MEDS: Lactated Ringers 1,000 ML 100 ML IVCONT (03:08)
[2024-03-26 06:00] VITALS: RESP 16
[2024-03-26 06:21] LABS: MANUAL DIFF FLAG NO
[2024-03-26 06:27] LABS: Basophils Percent Auto 0.1 % (0-2); Hematocrit 35.4 % (42.0-52.0); Hemoglobin 12.4 g/dl (14.0-18.0); Imm Gran Abs Auto 0.03 X10*3/uL (0.00-0.03); Imm Gran Pct Auto 0.4 % (0.0-0.4); Mean Corpuscular Hemoglobin 29.7 pg (27.0-33.0); Mean Corpuscular Volume 84.7 fL (80.0-98.0); Mean Platelet Volume 10.7 fL (9.4-12.4); Monocytes Absolute Auto 0.9 X10*3/uL (0.1-1.2); Monocytes Percent Auto 10.2 % (2-11); Neutrophils Absolute Auto 6.5 x10*3/uL (2.0-8.3); Neutrophils Percent Auto 77.3 % (45-73); Platelet Count 154 X10*3/uL (160-400); Red Blood Count 4.18 X10*6/uL (4.60-5.80); Red Cell Distribution Width 12.8 % (11.0-16.0); White Blood Count 8.4 X10*3/uL (4.8-10.8)
[2024-03-26 06:44] LABS: Anion Gap 14 (12-20); Blood Urea Nitrogen 16 mg/dL (9-16); Calcium 9.3 mg/dL (8.4-10.2); Carbon Dioxide 26 mmol/L (22-29); Chloride 103 mmol/L (96-108); Estimated Glomerular Filt Rate > 60; Glucose Fasting 195 mg/dL (60-99); Potassium 3.6 mmol/L (3.3-5.1); Sodium 139 mmol/L (135-145)
[2024-03-26 07:31] VITALS: BP 134/67; PULSE 91; O2SAT 95
[2024-03-26] MEDS: oxyCODONE HCl ER 10 MG TAB.ER.12H PO (07:56)
[2024-03-26] MEDS: Celecoxib 200 MG CAPSULE PO (07:56)
[2024-03-26] MEDS: Docusate Sodium 100 MG CAPSULE PO (07:56)
[2024-03-26] MEDS: Acetaminophen 325 MG TABLET 650 MG PO (07:57)
[2024-03-26] MEDS: oxyCODONE HCl Immed Release 5 MG TABLET PO (07:58)
[2024-03-26 08:04] VITALS: BP 169/85; PULSE 94; RESP 18; TEMP 36.2; O2SAT 93
[2024-03-26 08:35] VITALS: BP 169/85; PULSE 94; O2SAT 93
--- NOTE | 2024-03-26 09:12 | MHC.CM.PN ---
Male 63 s/p RTKA. He is independent. Lives with his . DP home with services. [facility] is in place. All discharge information has been sent to the agency. Patients will provide transportation home.
--- NOTE | 2024-03-26 10:08 | HO.POSTANES ---
Post Anesthesia Evaluation Post Anesthesia Evaluation Date of Service: 03/25/24 Vital Signs: Vital Signs Temp Pulse Resp BP Pulse Ox O2 Del Method 03/26/24 08:35 94 169/85 H 93 03/26/24 08:04 97.1 F 94 18 169/85 H 93 Room Air 03/26/24 07:31 91 134/67 95 03/26/24 06:00 16 03/26/24 02:00 97.3 F 91 16 134/67 95 Room Air Anesthesia: Spinal Mental Status: Awake Pain Control: Satisfactory Nausea/Vomiting: None Hydration: Adequate Anesthesia-Related Issues: No Anes. Related Issues
--- NOTE | 2024-04-04 13:35 | W.PM.OPN ---
Operative Note Operative Note Date of Service: 03/25/24 Narrative: Date of Service: 03/25/24 Pre-op diagnosis: right knee OA Post-op diagnosis: same Procedure: Right TKA Implants: [place]uch[place] Triathlon cemented posterior stabilized //35a/9PS Surgeon: Tramaine Monaco MD Anesthesia: regional and spinal Was an Flight Crew Scheduler used for this Procedure?: Yes Flight Crew Scheduler: Jud Richey Estimated blood loss (mL): 25 Tourniquet time (min): 80 IV fluids (mL): 1,000 Pathology: other Condition: stable Disposition: PACU Procedure in detail: The patient was brought to the operating room and prepped and draped in standard sterile fashion. A time-out was called to identify proper site proper procedure proper surgeon and IV antibiotics were administered. 1 g of IV tranexamic acid was administered. I began by making a midline incision to the retinaculum and performed a medial parapatellar arthrotomy. The patella was translated laterally and the knee was flexed up. The knee was tight and there was severe tricompartmental disease. I performed a small medial peel and resected the infrapatellar fat pad. Adilson's line was then used to drill my intramedullary femoral guide and my distal femur cut of 12 mm was made in 5 degrees of valgus while protecting the soft tissues. I then measured a # 6 femur and placed my cutting guide and made my anterior posterior and chamfer cuts protecting the soft tissues at all times. I then made my box but removing the PCL. Once I was satisfied with my cuts I turned my attention to the tibia. I removed the meniscus medially and laterally and , using an external cutting guide, in line with the tibial crest and the third ray, I made my distal tibial cut in 0 deg slope of while protecting the posterior soft tissues at all times. An extension block was used to confirm appropriate amount of bony resection. I then sized a #5 tibia and once I was satisfied that there was complete tibial coverage I placed my trial and with the trial femur in place took the knee through range of motion. I was satisfied with the extension and flexion as well as the balance at 0, 30 and 90 degrees. I then turned my attention to the patella where I removed 1 cm from the undersurface of the patella and then trialed a 35a patellar button. Again the knee was taken through range of motion I was satisfied with the tracking. I then prepared the tibia with a drill and punch. A femoral bone plug was placed and the knee was irrigated copiously. I then cemented the patella, tibia and femur in standard fashion. Axial compression and a clamp were used while the cement dried. Once the cement was hard o nthe back table all excess cement was removed and I trialed different inserts until I selected a #9ps insert. The final insert was placed and local TXA was administered. The knee was then closed with a running Quill suture, a 3 0 Vicryl and nadia on the skin. Patient was then placed in sterile dressing and brought to recovery room in stable condition there were no known complications.
== END 2024-03-26 09:43 | disposition home health service (06) ==
LOC: HO.SSS 10:26 → HO.S3 15:37
PROVIDERS: Physician Assistant; PCP Internal Medicine; Visit Provider Orthopaedic Surgery
PROC: (CPT 27447; principal; 2024-03-25 13:20)
DX: M17.11 Unilateral primary osteoarthritis, right knee (principal); I10 Essential (primary) hypertension; E78.00 Pure hypercholesterolemia, unspecified; C61 Malignant neoplasm of prostate; G47.30 Sleep apnea, unspecified; Z79.899 Other long term (current) drug therapy
CPT/HCPCS: 27447; 36415; 73560; 80048; 85025; 86850; 86900; 86901; 87640; 87641; 88305; 88311; 93005; 97110; 97116; 97162; C1713; C1776; J0131; J0171; J0665; J0690; J1100; J2250; J2405; J2704; J3010; J7120

== ENCOUNTER → 2024-03-25 10:26 | Outpatient (BNV) | payer BC, SELFPAY | PROVIDERS: PCP Internal Medicine; Visit Provider Orthopaedic Surgery | DX: Z47.1 Aftercare following joint replacement surgery (principal); Z96.651 Presence of right artificial knee joint | CPT/HCPCS: 27447; 99024; G0180 ==

== ENCOUNTER → 2024-03-25 10:55 | Outpatient (BNV) | payer BC, SELFPAY | PROVIDERS: PCP Internal Medicine; Visit Provider Internal Medicine Cardiovascular Disease | DX: R00.0 Tachycardia, unspecified (principal); Z01.810 Encounter for preprocedural cardiovascular examination; R94.31 Abnormal electrocardiogram [ECG] [EKG] | CPT/HCPCS: 93010 ==

== ENCOUNTER 2024-04-10 14:41 | Outpatient (AMB) | payer BC, SELFPAY ==
--- NOTE | 2024-04-10 14:45 | MHC.OFFVIS ---
Intake Visit Reasons: 2WK PO: R TKA w/NE 03/25/24 Intake Note: Ryan a 63 year old male who presents today for a post operative visit s/p right TKA on 03/25/24 NE. Patient reports having improvement in his pain since his surgery. Allergies No Known Allergies [No Known Allergies*] Allergy (Unverified 04/10/24 14:50) HPI HPI 2WK PO: R TKA w/NE 03/25/24: Details: 63-year-old male who returns to the office today for post-op right TKA, 03/25/[address] Monaco. He states he has improvement in his pain and is doing well overall. He is working on physical therapy with benefits. He has no other concerns today. 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 No redness or drainage. ROM is 5 to 85 degrees. Calf supple, nontender. NVI. Assessment & Plan Assessment & Plan (1) Status post total right knee replacement: Code(s): Z96.651 - Presence of right artificial knee joint Category: Surgical Plan Shickley removed, steri strips applied. He will transition to Outpatient PT to continue working on Gait training, ROM and quad strength. He is attending a therapt out in [facility] where he is staying and was given a copy of the PT order today. No driving for another 4 weeks. He will require ppx abx for dental procedures. He will f/u in 4 weeks, sooner if needed. Patient Instructions: Scribed for Ta-Evelia Meuse, PA-C, by Vahid Jaeger nurses medical assistants phlebotomists, on 04/10/2024 at 2:45 PM EST.? I, Jud Richey PA-C, have personally reviewed and agree with the information entered by the scribe. Coding Level of Care Code Global (37482) Diagnoses Status post total right knee replacement Z96.651
== END 2024-04-10 15:42 | disposition home or self-care (01) ==
PROVIDERS: PCP Internal Medicine; Visit Provider Physician Assistant
DX: Z96.651 Presence of right artificial knee joint (principal)
CPT/HCPCS: 99024

== ENCOUNTER → 2024-04-10 14:41 | Outpatient (BNVA) | payer BC, SELFPAY | PROVIDERS: PCP Internal Medicine; Visit Provider Physician Assistant ==

== ENCOUNTER 2024-05-01 13:39 | Outpatient (AMB) | payer BC, SELFPAY ==
--- NOTE | 2024-05-01 13:40 | MHC.OFFVIS ---
Intake Visit Reasons: 6WK PO: R TKA w/NE 03/25/24 Intake Note: Ryan is a 63 year old male who presents today for a follow up of his right knee s/p right TKA 03/25/24. Patient rpeorts that he is doing well and has no concerns. He was attending PT in the [facility] but would like to do PT here [facility], he states that he has appt tomorrow but they will not keep appt with him unless they have order Allergies No Known Allergies [No Known Allergies*] Allergy (Unverified 04/10/24 14:50) HPI HPI 6WK PO: R TKA w/NE 03/25/24: Details: Ryan is a 63 year old male who presents today for a follow up of his right knee s/p right TKA 03/25/24. Patient rpeorts that he is doing well and has no concerns. He was attending PT in the [facility] but would like to do PT here [facility], he states that he has appt tomorrow but they will not keep appt with him unless they have order PFSH Medical History Prostate cancer Sleep apnea Elevated cholesterol HTN (hypertension) Surgical History History of esophagogastroduodenoscopy (EGD) S/P right knee arthroscopy Social History Household Members: Spouse Housing: House Are you a primary transitions rn care coordinator to a significant other at home: No Do you presently have visiting nurse or other home services: No Patient Tobacco Use Status: Never used Tobacco service: No Current occupational status: employed 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 Aggressive range of motion encouraged. Follow up 6 weeks Coding Level of Care Code Global (77440) Diagnoses Status post total right knee replacement Z96.651
== END 2024-05-01 14:10 | disposition home or self-care (01) ==
PROVIDERS: PCP Internal Medicine; Visit Provider Orthopaedic Surgery
DX: Z96.651 Presence of right artificial knee joint (principal)
CPT/HCPCS: 99024

== ENCOUNTER → 2024-05-01 13:39 | Outpatient (BNVA) | payer BC, SELFPAY | PROVIDERS: PCP Internal Medicine; Visit Provider Orthopaedic Surgery ==

== ENCOUNTER 2024-06-12 14:53 | Outpatient (AMB) | payer BC, SELFPAY ==
--- NOTE | 2024-06-12 14:57 | A.OFFVIS_ITS ---
Intake Visit Reasons: 6WK PO: R TKA w/NE 03/25/24 Intake Note: Ryan is a 63 year old male who presents today for a follow up of his right knee s/p right TKA 03/25/24. Patient reports that he is doing well with no concerns. Allergies No Known Allergies [No Known Allergies*] Allergy (Unverified 04/10/24 14:50) HPI HPI 6WK PO: R TKA w/NE 03/25/24: Details: Ryan is a 63 year old male who presents today for a follow up of his right knee s/p right TKA 03/25/24. Patient reports that he is doing well with no concerns. 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 No effusion Normal gait Assessment & Plan Assessment & Plan (1) Status post total right knee replacement: Code(s): Z96.651 - Presence of right artificial knee joint Category: Surgical Plan: Radha is doing very well status post knee replacement. He does have some restricted flexion which she had at baseline status post quad rupture many years ago. He should continue to work on range motion is I think he should be able to get to 120 maybe even 125 degrees. I will see him back in 4 weeks Coding Level of Care Code Global (89424) Diagnoses Status post total right knee replacement Z96.651
== END 2024-06-12 15:26 | disposition home or self-care (01) ==
PROVIDERS: PCP Internal Medicine; Visit Provider Orthopaedic Surgery
DX: Z96.651 Presence of right artificial knee joint (principal)
CPT/HCPCS: 99024

== ENCOUNTER → 2024-06-12 14:53 | Outpatient (BNVA) | payer BC, SELFPAY | PROVIDERS: PCP Internal Medicine; Visit Provider Orthopaedic Surgery ==

== ENCOUNTER 2024-07-04 07:00 | Outpatient (RCR) | payer BC, SELFPAY ==
--- NOTE | 2024-05-02 08:08 | MHC.PT.EP ---
[facility] [place] Office [place] Office [place] Office [address] Misty Reyna [address] [phone] F: [phone] F: [phone] F: [phone] F: [phone] Physical Therapy Plan of Care Date of Evaluation: 05/02/24 Date of Surgery: Diagnosis: R TKA Assessment: Patient is a 63 year old R handed male who presents with s/s consistent with R TKA 03/25/24. 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 Patient past medical history includes prostate cancer and R quad repair 7 years ago. Current impairments include pain, balance, gait mechanics, ROM, strength, activity tolerance and functional mobility. Functional limitations include decreased ability to stand, walk, transfer, negotiate stairs, perform tasks around the house and work. Patient is motivated with good rehab potential. Skilled PT will address impairments and functional limitations in order to achieve goals. Frequency and Duration: The patient will be seen 2x/week for 5 weeks Short Term Goals: I with HEP - 2 weeks AROM 0-120 - 3 weeks Symmetrical gait - 3 weeks Swelling absent - 3 weeks Oven Equipment Repairer Goals: Strength 4+/5 grossly - 5 weeks LEFS 62/80 - 5 weeks Symmetrical stair negotiation - 5 weeks Max pain 2/10 - 5 weeks Treatment Plan: Modalities to reduce pain, spasms and effusion. Manual therapy to restore motion and function. Therapeutic exercise to improve strength and flexibility. Neuromuscular re-education for posture and balance. Therapeutic activities to return to functional activities of daily living. Electronically signed by: Nicholas Urrutia, PT Please sign and return to therapist. Thank you for your referral.
--- NOTE | 2024-11-14 12:08 | MHC.PT.DC ---
[facility] [place] Office [place] Office [place] Office [address] Misty Reyna [address] [phone] F: [phone] F: [phone] F: [phone] F: [phone] Physical Therapy Discharge Report Diagnosis: R TKA Date of Surgery: Date of Evaluation: 05/02/24 Date of Discharge: 07/27/24 Treatments to Date: 13 Cancellations to Date: No Shows to Date: Discharge Status: Improved Function Independent with HEP Discharge Summary: 07/04/24: ROM maintaining. no adverse reactions. continuing to progress strength. pt has been having less pain with daily activities and increased walking. 06/20/24: pt continues to maintain ROM but not improve significantly. improved stair/ladder climbing noted outside of PT. we will taper to 1x every 2 weeks to ensure good transition out of PT. 06/17; Pt is able to achieve equal extension with other knee after passive stretching. Pt I with his HEP. Plan 1 visit DC with program. 06/12/24: pt progressing well with skilled PT. no adverse reactions. ROM seems to have plateaued but strength improvements and balance continues. 06/10; Pt conts with decreased knee extension. Pt sees . Progress as juliana. 06/06/24: pt notes a lot of soreness from playing a lot of golf. his ROM to 111 today and with some increased swelling. we held progression and used CP/elevation to finish. 05/28; Pt progressing with ROM. Pt fatigued after hip strengthening with grb. 05/23/24: pt progressing well with skilled PT. AAROM in gravity assisted 113. Ext PROM lacking 2. 05/16/24: pt progressed well with skilled PT. AAROM flexion to 111. significant cuing given for stairs mechanics - heel first, reduced compensatory patterns, straight torso, knee flexion, use of UE to promote improved mechanics. 05/13; Pt improved with stairs after practice. Pt cont with decreased mobility, knee warm to the touch, lag with SLR and challenged woith balance exs, 05/09/24: pt progressing well with skilled PT. AAROM flexion to 108. continue to progress as tolerated pursuing 1 degree per day. 05/07; Pt knee warm to the touch. Pt ext and flexion limited. Decreased heel stride with gait. Pt fatigued after exs. Patient is a 63 year old R handed male who presents with s/s consistent with R TKA 03/25/24. 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 Patient past medical history includes prostate cancer and R quad repair 7 years ago. Current impairments include pain, balance, gait mechanics, ROM, strength, activity tolerance and functional mobility. Functional limitations include decreased ability to stand, walk, transfer, negotiate stairs, perform tasks around the house and work. Patient is motivated with good rehab potential. Skilled PT will address impairments and functional limitations in order to achieve goals. Electronically signed by: Nicholas Urrutia, PT Please sign and return to therapist. Thank you for your referral.
== END 2024-11-14 12:09 | disposition home or self-care (01) ==
LOC: HO.PTCHIC 07:00
PROVIDERS: PCP Internal Medicine; Visit Provider Physician Assistant
DX: Z96.651 Presence of right artificial knee joint (principal)
CPT/HCPCS: 97110; 97162

== ENCOUNTER 2024-07-17 14:36 | Outpatient (AMB) | payer BC, SELFPAY ==
--- NOTE | 2024-07-17 14:37 | A.OFFVIS_ITS ---
Intake Visit Reasons: OV: R TKA w/NE 03/25/24 Intake Note: Ryan is a 63 year old male who presents today for a follow up of his right knee s/p right TKA 03/25/24. He was last instructed to work on his ROM with the goal of getting to 120-125 degrees flexion. Pt states he has one more PT session. Allergies No Known Allergies [No Known Allergies*] Allergy (Unverified 07/17/24 14:38) HPI HPI OV: R TKA w/NE 03/25/24: Details: Ryan is a 63 year old male who presents today for a follow up of his right knee s/p right TKA 03/25/24. He was last instructed to work on his ROM with the goal of getting to 120-125 degrees flexion. Pt states he has one more PT session. 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 His motion is his motion. He was limited preoperatively and he continues to be limited postoperatively. He understands this. Otherwise doing very well. He may follow up as needed. Coding Level of Care Code Est Pt Level 3 (77592) Diagnoses Status post total right knee replacement Z96.651
== END 2024-07-17 15:01 | disposition home or self-care (01) ==
PROVIDERS: PCP Internal Medicine; Visit Provider Orthopaedic Surgery
DX: Z47.1 Aftercare following joint replacement surgery (principal); Z96.651 Presence of right artificial knee joint
CPT/HCPCS: 99212

== ENCOUNTER 2024-08-29 06:34 | Outpatient (REF) | payer BC, SELFPAY ==
[2024-08-29 06:50] LABS: MANUAL DIFF FLAG NO
[2024-08-29 08:07] LABS: Basophils Percent Auto 0.5 % (0-2); Eosinophils Absolute Auto 0.1 X10*3/uL (0.0-0.4); Eosinophils Percent Auto 2.5 % (0-4); Hematocrit 43.2 % (42.0-52.0); Hemoglobin 14.7 g/dl (14.0-18.0); Imm Gran Abs Auto 0.01 X10*3/uL (0.00-0.03); Imm Gran Pct Auto 0.2 % (0.0-0.4); Lymphocytes Absolute Auto 1.7 X10*3/uL (1.2-4.9); Lymphocytes Percent Auto 31.3 % (20-40); Mean Corpuscular Hemoglobin 28.2 pg (27.0-33.0); Mean Corpuscular Volume 82.8 fL (80.0-98.0); Mean Platelet Volume 10.4 fL (9.4-12.4); Monocytes Absolute Auto 0.4 X10*3/uL (0.1-1.2); Monocytes Percent Auto 6.7 % (2-11); Neutrophils Absolute Auto 3.2 x10*3/uL (2.0-8.3); Neutrophils Percent Auto 58.8 % (45-73); Platelet Count 164 X10*3/uL (160-400); Red Blood Count 5.22 X10*6/uL (4.60-5.80); Red Cell Distribution Width 12.7 % (11.0-16.0); White Blood Count 5.5 X10*3/uL (4.8-10.8)
[2024-08-29 09:00] LABS: Alanine Aminotransferase 22 U/L (0-40); Albumin Level 4.4 g/dL (3.5-5.0); Alkaline Phosphatase 82 U/L (39-117); Anion Gap 15 (12-20); Aspartate Amino Transferase 23 U/L (5-37); Bilirubin Total 0.9 mg/dL (0.0-1.0); Blood Urea Nitrogen 16 mg/dL (9-16); Calcium 8.6 mg/dL (8.4-10.2); Carbon Dioxide 25 mmol/L (22-29); Chloride 104 mmol/L (96-108); Cholesterol 175 mg/dL (<200); Estimated Glomerular Filt Rate > 60; Glucose Fasting 187 mg/dL (60-99); HDL Cholesterol 50 mg/dL (>40); LDL Cholesterol Calculated 97 mg/dL (<100); Potassium 3.7 mmol/L (3.3-5.1); Sodium 140 mmol/L (135-145); Total Protein 7.6 g/dL (6.5-8.0); Triglycerides 144 mg/dL (<150)
[2024-08-29 09:05] LABS: Estimated Average Glucose 174 mg/dL; Hemoglobin A1C 226.9475 umol/L; Hemoglobin A1c % 7.7 % (<6.0); Total Hemoglobin (HGBA1C) 3752.1575 umol/L
== END 2024-08-29 06:35 | disposition home or self-care (01) ==
LOC: HO.LAB 06:34
PROVIDERS: PCP Internal Medicine; Visit Provider Internal Medicine
DX: Z00.00 Encounter for general adult medical examination without abnormal findings (principal); R53.83 Other fatigue; E78.5 Hyperlipidemia, unspecified; Z13.1 Encounter for screening for diabetes mellitus
CPT/HCPCS: 36415; 80053; 80061; 83036; 85025

== ENCOUNTER 2024-11-27 15:25 | Outpatient (AMB) | payer BC, SELFPAY ==
--- NOTE | 2024-11-27 13:49 | A.OFFVIS_ITS ---
Vital Signs 11/27/24 15:29 Height 6 ft Weight 235 lb 14.314 oz BMI 32.0 BP 146/90 H Blood Pressure Location Rt brachial Position Sitting Pulse 100 Pulse Source Pulse Oximeter Pulse Oximetry (%) 98 Oxygen Delivery Method Room Air Intake Visit Reasons: T2DM Intake Note: NEW Patient presents today to establish treatment for Type 2 Diabetes Mellitus: Last Diabetic eye exam was on: 06/27/2024 Last Podiatry exam was on: Patient does not see a Holiday Detector Operator Most recent HbA1c: 6.6%, 11/27/2024 Random Glucose- 142 mg/dL, Today Pyrotechnics Press Tender Required: No Accompanied by: Self / Same As Patient Allergies pravastin Adverse Reaction (Intermediate, Uncoded 11/27/24 16:40) Muscle Pain HPI Comments Details: 64 YO male who is seen in consultation for T2DM at the request of PCP. His A1cs have historically been in the mid 6 range when last to have crept up. Since hearing of his latest A1c of 7.7 % he has modified his diet in his following a well balanced meal plan. He goes to [employer] 3 times per week. That was on hold earlier in the year when he had a prostatectomy. Initially diagnosed with T2DM approx 2019 Was initially started on treatment with diet and exercise Current regimen: no medications Checks sugars 1-2 times per day. Range: am 73-130's was in the 150's earlier in the year but has revised diet later in the day: tested twice over the past month <166 Reports low sugars none Treats lows; HASN'T had any lows Most recent A1C 6.6% on 11/27/24 down from prior 7.7 at the end of 2023. Family history of T2DM in sibling No retinopathy: Has eyes checked yearly, last eye exam 07/20 Deniess neuropathy: does not see podiatry [Denies] nephropathy, on ARB 08/29/2024 eGFR>60 Had HLD, he previously was on a statin but had severe muscle aches from below pravastatin and another statin. Last LDL 97 as measured on 08/29/2024 he follows a low-fat diet Denies CAD. Denies symptoms of chest pain, dyspnea or claudication. Diet: Very balanced His does the meal preparation and uses a diabetes cook book. Weight: Stable [facility] Medical History (Updated 11/27/24 @ 16:41 by Corinna Laureano NP) Type 2 diabetes mellitus Prostate cancer Sleep apnea Elevated cholesterol HTN (hypertension) Surgical History History of esophagogastroduodenoscopy (EGD) S/P right knee arthroscopy Family History (Updated 11/27/24 @ 15:33 by RUPERTO Loyd) Father No problems noted. Mother No problems noted. 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 Absence of acromegalic features. Neck exam reveals nl size thyroid about 15 gms. No thyroid nodules palpable. No carotid bruits present. Lungs CTA. Heart S1 S2, Reg R/R. No M/R/ G. Skin exam reveals absence of vitiligo or acanthosis nigricans. Abdominal exam reveals Soft NT/ND with NA BS. No organomegaly present. Const Other: Absence of Cushingoid features. Absence of acromegalic features. Neck exam reveals nl size thyroid about 15 gms. No thyroid nodules palpable. No carotid bruits present. . Heart S1 S2, Reg R/R. No M/R G. Skin exam reveals absence of vitiligo or acanthosis nigricans. No edema . Neck Other: . Extrem Other: Visual exam of foot performed. No ulcerations or open lesions. No onchomycosis, no callouses.Pulses 2 + distally Sensation intact to monofilament exam. Vibratory sensation sensed is intact with 128 Hz tuning fork Results AMB Hemoglobin A1c AMB Hemoglobin A1c 6.6 % Last Edit by RUPERTO Loyd on 11/27/24 15:47 Results Reviewed Results Reviewed: Laboratory Last Values Glucose (Clinic) 142 mg/dL (60-115) H 11/27/24 15:36 Assessment & Plan Assessment & Plan (1) Type 2 diabetes mellitus: Code(s): E11.9 - Type 2 diabetes mellitus without complications Category: Medical Plan: 64-year-old type 2 diabetic with no known micro/macrovascular complications with the an A1c in the office daily of 6.6% down from 7.7% through diet modification and lifestyle changes. Continue lifestyle changes and regular exercise. The patient had an opportunity to ask questions regarding treatment plan. The patient expressed understanding and agreement with the above treatment plan. The patient is aware they should contact our office by phone for worsening glucose readings or for any low blood sugars which may warrant a change in diabetes medication. Compliance is encouraged with medications and any followup testing/consults which may have been ordered. He will follow up with me in 1 year Orders: Orders AMB Hemoglobin A1c Today Z13.1 - Encounter for screening for diabetes mellitus Medications: Discontinued celecoxib Discontinued Reason: Doctor's Order 200 mg PO BID 30 days 60 caps 0RF docusate sodium Discontinued Reason: Doctor's Order 100 mg PO BID 30 days 60 caps 0RF oxycodone Partial Fill upon patient request. Discontinued Reason: Doctor's Order 5 mg PO Q4H 7 days PRN 42 tabs 0RF Pain, Moderate(Pain Scale 4-6) apixaban (Eliquis) To be used post op RT TKA Discontinued Reason: Doctor's Order 2.5 mg PO BID 6 weeks 84 tabs 0RF M17.11 - Unilateral primary osteoarthritis, right knee Patient Instructions: The patient was counseled to achieve a target A1C of 7% (154 avg). Fasting blood sugars should be 90-130 in the morning and less than 180 two hours after meals. Reviewed the relationship between poor diabetic control and the development of complications. Take 15 carb carbohydrate grams to treat a low sugar (3-4 glucose tablets, half a glass of juice or 15 carbohydrate grams of soft candy such as gummie snacks). Recheck your sugar in 15 minutes and re-treat again with 15 carbohydrate grams if low or still with symptoms. Do not drive a car or operate machinery if you do not know what your blood sugar is, if it is low or in excess of 300. Check your feet daily looking for any signs of infection, drainage, redness, ulceration and seek medical attention if this occurs. Break in shoes gradually and do not wear open-toed shoes or walk stocking footed or barefooted. Coding Level of Care Code Est Pt Level 4 (53710) Complex EM visit Add On G2211 Diagnoses Type 2 diabetes mellitus E11.9
[2024-11-27 15:29] VITALS: BP 146/90; PULSE 100; O2SAT 98; BMI 32.0
[2024-11-27 15:42] LABS: Glucose, Whole Blood 142 mg/dL (60-115)
== END 2024-11-27 16:14 | disposition home or self-care (01) ==
LOC: HO.ENCR 15:26
PROVIDERS: PCP Internal Medicine; Visit Provider Nurse Practitioner Adult Health
DX: Z13.1 Encounter for screening for diabetes mellitus (principal); E11.9 Type 2 diabetes mellitus without complications
CPT/HCPCS: 99214

== ENCOUNTER → 2024-11-27 15:25 | Outpatient (BNVA) | payer BC, SELFPAY | PROVIDERS: PCP Internal Medicine; Visit Provider Nurse Practitioner Adult Health | DX: E11.9 Type 2 diabetes mellitus without complications (principal) | CPT/HCPCS: 82947; 83036 ==

== ENCOUNTER 2025-01-26 11:05 | Outpatient (REF) | payer BC, SELFPAY ==
--- NOTE | ~2025-01-26 | XR_ITS ---
EXAMINATION: XR CHEST 2 VIEWS HISTORY: COUGH COMPARISON: Comparison is made with the prior examination dated 08/30/2018. FINDINGS: PA and lateral views of the chest are submitted. The lungs are expanded and clear. There is no pleural effusion, pneumothorax, or pulmonary vascular congestion. The heart is normal in size. There is degenerative disc disease of the spine. XR/XR chest 2V IMPRESSION: No acute cardiopulmonary abnormality. Electronically signed by: Sal Cervantes MD 01/26/2025 11:30 AM EDT
== END 2025-01-26 11:06 | disposition home or self-care (01) ==
LOC: HO.XRAY 11:05
PROVIDERS: PCP Internal Medicine; Visit Provider Internal Medicine
DX: R05.9 Cough, unspecified (principal)
CPT/HCPCS: 71046

== ENCOUNTER → 2025-01-26 11:13 | Outpatient (BNV) | payer BC, SELFPAY | PROVIDERS: PCP Internal Medicine; Visit Provider Radiology Diagnostic Radiology | DX: R07.9 Chest pain, unspecified (principal) | CPT/HCPCS: 71046 ==